=== PATIENT | female | born 1940 | race Caucasian/White ===

== ENCOUNTER → 2016-12-14 | Outpatient (CLI) | payer OTHER ==
--- NOTE | 2016-12-14 15:43 | MAMMOGRAPHY REPORT ---
BILATERAL DIGITAL SCREENING MAMMOGRAM WITH CAD: 12/14/2016 CLINICAL HISTORY: Routine screening. Patient has no complaints. TECHNIQUE: Bilateral CC and MLO views were obtained. Current study was also evaluated with a Comput er Aided Detection (CAD) system. COMPARISON: Comparison is made to exams dated: 12/09/2015 mammogram, 12/03/2014 mammogram, 03/09/2011 mammogram, 09/27/2013 mammogram, 11/24/2009 mammogram - [facility], and 11/11/2008. BREAST COMPOSITION: The tissue of both breasts is heterogeneously dense, which may obscure small ma sses. FINDINGS: The parenchymal pattern is unchanged. No developing mass, architectural distortion or clu ster of suspicious microcalcifications is seen in either breast. IMPRESSION: ACR BI-RADS CATEGORY 2: BENIGN There is no mammographic evidence of malignancy. A 1 year screening mammogram is recommended. The p atient will receive written notification of the results. Approximately 10% of breast cancers are not detected with mammography. A negative mammographic repor t should not delay biopsy if a clinically suggestive mass is present. Kriss Khanna M.D. ay/:12/14/2016 15:31:02 Director Video: Lexis LENNON(Blake)(Cipriano), [facility] letter sent: Normal 1/2 BI-RADS Code: ACR BI-RADS Category 2: Benign
== END | disposition home or self-care (01) ==
LOC: C.MAMM 14:55
PROVIDERS: ATTEND Family Medicine
DX: Z12.31 Encounter for screening mammogram for malignant neoplasm of breast (principal)

== ENCOUNTER 2017-11-25 06:44 | Inpatient (IN) | payer OTHER ==
[2017-10-31 10:46] VITALS: BMI 27.0
--- NOTE | 2017-10-31 11:26 | PAT Medication Instructions ---
Service Date Oct 31, 2017. Current Home Medication List Acetaminophen/Diphenhydramine (Tylenol Pm), 1 TAB PO HS PRN for Sleep Aspirin (Aspirin Ec), 81 MG PO QDL Calcium Carbonate (Tums), 1 TAB PO QDL Cholecalciferol (Vitamin D3), Unknown Dose PO QAM Diazepam (Valium), 2 MG PO UD PRN for prn Folic Bomz-Volelqujxu-Koxixerw (Folbic), 1 TAB PO QDL Levothyroxine Sodium (Levothyroxine Sodium), 1 TAB PO QAM Multivitamin (Multivitamin), 1 TAB PO QDL Naproxen (Aleve), 220 MG PO UD PRN for prn Verapamil (Verelan Pm), 180 MG PO BID Medication Instructions For Your Scheduled Surgery -Contact your surgeon for instructions for: Naproxen (Aleve), 220 MG PO UD PRN for prn - Hold the following medications the morning of surgery: Cholecalciferol (Vitamin D3), Unknown Dose PO QAM - Take the following medications the morning of surgery with a sip of water: Diazepam (Valium), 2 MG PO UD PRN for prn (if needed) Levothyroxine Sodium (Levothyroxine Sodium), 1 TAB PO QAM Verapamil (Verelan Pm), 180 MG PO BID - Take the following medications as scheduled the afternoon/night before surgery : Acetaminophen/Diphenhydramine (Tylenol Pm), 1 TAB PO HS PRN for Sleep (if needed ) Aspirin (Aspirin Ec), 81 MG PO QDL Calcium Carbonate (Tums), 1 TAB PO QDL Diazepam (Valium), 2 MG PO UD PRN for prn (if needed) Folic Ioij-Xemgevjyyi-Idmnodns (Folbic), 1 TAB PO QDL Multivitamin (Multivitamin), 1 TAB PO QDL Verapamil (Verelan Pm), 180 MG PO BID If you have any questions please call us at [phone] or [phone] or [phone]
--- NOTE | 2017-10-31 12:13 | DIAGNOSTIC IMAGING REPORT ---
TWO VIEW CHEST CLINICAL HISTORY: Preoperative examination. FINDINGS: PA and lateral chest radiographs are compared to study dated 02/07/2014. The heart is top normal for projection and there is atherosclerotic calcification of the thoracic aorta. Chronic interstitial thickening is similar to previous. There is no airspace consolidation or pleural effusion. There is no pneumothorax. The skeletal structures are osteopenic. Arthritic change is seen in the shoulders. IMPRESSION: No active disease in the chest. Electronically signed by: Ari Jerez M.D. 10/31/2017 12:12 PM Dictated Date/Time: 10/31/2017 12:11 PM
[2017-10-31 12:14] LABS: BASO % 0.8 %; BASO ABS # 0.04 K/uL (0-0.2); EOS % 3.1 %; EOS ABS # 0.16 K/uL (0-0.5); HEMATOCRIT 39.5 % (37-47); HEMOGLOBIN 13.4 g/dL (12.0-16.0); IG# 0.01 K/uL (0.00-0.02); LYMPH % 29.5 %; LYMPH ABS # 1.53 K/uL (1.2-3.4); MEAN CELL VOLUME 90.6 fL (80-100); MEAN CORPUSCULAR HEMOGLOBIN 30.7 pg (25-34); MEAN CORPUSCULAR HGB CONC 33.9 g/dl (32-36); MONO % 11.8 %; MONO ABS # 0.61 K/uL (0.11-0.59); NEUT % 54.6 %; NEUT ABS # 2.83 K/uL (1.4-6.5); PLATELET COUNT 258 K/uL (130-400); RED CELL DISTRIBUTION WIDTH CV 13.9 % (11.5-14.5); RED CELL DISTRIBUTION WIDTH SD 46.1 fL (36.4-46.3); WHITE BLOOD COUNT 5.18 K/uL (4.8-10.8)
[2017-10-31 12:33] LABS: PTT PATIENT 29.2 SECONDS (21.0-31.0)
[2017-10-31 14:10] LABS: CALCIUM 9.8 mg/dl (8.5-10.1); CREATININE 0.73 mg/dl (0.60-1.20)
--- NOTE | 2017-11-18 17:58 | HISTORY & PHYSICAL EXAMINATION ---
DATE OF ADMISSION: 11/25/2017 CHIEF COMPLAINT: Left hip pain. HISTORY OF PRESENT ILLNESS: This is a 77-year-old female who presents for treatment of her left hip and leg pain. She has a several year history of gradually progressive increasing left hip pain and discomfort. She describes groin pain, thigh pain, buttock pain that radiates down to her knee. Denies any numbness. We put a shot in her hip area which helped for just a little bit. She become more debilitated by her pain. She limps more as the day goes on. She has a who is not real healthy and she is having more and more difficulty caring for him due to her limited walking ability and limping and pain. She would like to have her left hip fixed. PAST MEDICAL HISTORY: Significant for: 1. Hypertension. 2. Thyroid cancer status post resection. 3. Arthritis. 4. Low back pain/sciatica. PAST SURGICAL HISTORY: Include: 1. Thyroid removal, 2009. 2. Shoulder surgery, 2006. 3. Knee arthroscopy, 2002. 4. Cataract surgery x2. 5. Hysterectomy. ALLERGIES: SULFA AND SHRIMP. CURRENT MEDICINES: Include: 1. Levothyroxine. 2. Verapamil. 3. Folic acid. 4. Baby aspirin. 5. Calcium. 6. Daily vitamin. SOCIAL HISTORY: A 77-year-old female. She is . Her is in declining health. She does not smoke. No significant alcohol intake. FAMILY HISTORY: Negative for heart disease, diabetes, or blood clots. REVIEW OF SYSTEMS: Negative for diabetes, neurological problems, vascular problems, bleeding disorders. Denies any chest pain or shortness of breath. No history of DVT or PE. She does have a kind of chronic back pain. PHYSICAL EXAMINATION: GENERAL: Reveals a healthy, pleasant middle-aged female. She looks stronger than her stated age. HEENT: Benign. NECK: Supple. No lymphadenopathy. LUNGS: Clear to auscultation. HEART: Has a regular rate and rhythm. ABDOMEN: Soft, nontender, nondistended. EXTREMITIES: Grossly neurovascularly intact except as follows: Examination of left hip and leg reveals patient walks with a bit of a flexed hip posture. She limps on the left side. Leg lengths are clinically pretty equal. She has pain with any type of hip motion and pretty stiff hip. Internally rotates maybe to a neutral at best. External rotation at 20 degrees. She has pain with internal rotation. Negative straight leg raise. She has about a 20 degree flexion contracture of the hip. X-RAYS: X-rays of the hip reveal advanced left hip DJD. She has complete loss of superior joint space. She has subchondral sclerosis. She has diffuse osteopenia. She does have advanced lumbar spondylosis as well. ASSESSMENT: A 77-year-old female with left hip and leg pain consistent with advanced left hip arthritis. She also has pretty significant lumbar spondylosis and spinal stenosis. She would like to have her left hip replaced. PLAN: We talked about treatment options and will proceed with left hip replacement. The risk and benefits of left total hip replacement were explained to the patient include but not limited to DVT, PE, , infection, neurological injury, vascular injury, bleeding problem, pain, limited range of motion, stiffness, failure to relieve symptoms, incomplete relief of symptoms, need for further surgery in future, fracture, leg length inequality, nerve palsy, dislocation, need for blood transfusion, etc. The patient understands and desires to proceed. Informed consent was obtained. I did explain to her that this is not going to fix her back problem and she is fully aware of that. She is planning on going to a custodial facility or [facility] for a brief rehab stay. Her is not in a great medical health and she does not want to be a burden on him. We did talk about holding her verapamil the morning of surgery.
[2017-11-25] VITALS (25 sets, daily range): BP systolic 103–147; BP diastolic 54–79; PULSE 55–81; TEMP 33.7–36.6; O2SAT 94–99; Ht 162.6 cm; Wt 72.2 kg
[~2017-11-25] VITALS: Ht 162.6 cm; Wt 72.2 kg
[~2017-11-25 06:44] MED LIST: ACETAMINOPHEN 500 MG TAB PO SCH; ASPI81TA28 PO; BUPIVACAINE 0.5 % 5 MG/1 ML PF 10ML VIAL ONE; CALC500C3 PO; CEFAZOLIN 2000MG IV PUSH 15 ML IV SCH; CHOL1000 PO; DC INTRASPINAL MORPHINE SCH; DIAZ2TAB PO; DIPH-437 PO; FAMOTIDINE 20 MG TAB PO SCH; FOLITAB21 PO; GABAPENTIN 300 MG CAP PO SCH; LACTATED RINGER'S 1000ML 1,000 ML IV SCH; LACTATED RINGER'S 1000ML 500 ML IV SCH; LACTATED RINGER'S 1000ML IV SCH; LEVO112T4 PO; METOCLOPRAMIDE HCL 10 MG TAB PO SCH; MULT-506 PO; NAPR1TAB9 PO; SCOPOLAMINE 1.5 MG TDSY TD SCH; TRANEXAMIC ACID INJ 1,000 MG x 1 Bag Preop IV SCH; VERA1CAP5 PO
--- NOTE | 2017-11-25 06:54 | History & Physical Bridge Note ---
H&P Re-Evaluation Bridge Note: I have examined the patient, reviewed the History & Physical and in the interval since the performance of the History & Physical I have noted the following changes of clinical significance: No changes noted
[2017-11-25] MEDS ORDERED: ONDANSETRON INJ 2 MG/ML 2 ML VIAL IV PRN ×2 (07:45→10:45)
[2017-11-25] MEDS ORDERED: ATROPINE SULFATE 0.1 MG/ML 5ML SYR IV PRN (07:45)
[2017-11-25] MEDS ORDERED: FENTANYL CITRATE INJ 50 MCG/1 ML 2 ML VIAL IV PRN (07:45)
[2017-11-25] MEDS ORDERED: EpHEDrine SULFATE INJ 50 MG/ML AMP IV PRN ×2 (07:45→08:45)
[2017-11-25] MEDS ORDERED: ONDANSETRON INJ 2 MG/ML 2 ML VIAL ONE (08:07)
[2017-11-25] MEDS ORDERED: DEXAMETHASONE SOD INJ 4 MG/ML VIAL ONE (08:07)
[2017-11-25] MEDS ORDERED: LIDOCAINE HCL 2% 2 ML VIAL (20MG/ML) ONE (08:07)
[2017-11-25] MEDS ORDERED: PROPOFOL IV EMULSION 10 MG/ML 20 ML VIAL IV ONE (08:07)
[2017-11-25] MEDS ORDERED: FENTANYL CITRATE INJ 50 MCG/1 ML 2 ML VIAL ONE (08:08)
[2017-11-25] MEDS ORDERED: MIDAZOLAM HCL 1 MG/ML 2ML VIAL ONE (08:08)
[2017-11-25] MEDS ORDERED: MoRPHine SULFATE PF 1 MG/ML 10 ML AMP/VIAL ONE (08:10)
[2017-11-25] MEDS ORDERED: BACITRACIN 50000 UNIT VIAL ONE (08:31)
[2017-11-25] MEDS ORDERED: BUPIVACAINE/EPINEPHRINE 0.5% MPF 1:200,000 30 ML VIAL ONE (08:31)
[2017-11-25] MEDS ORDERED: LACTATED RINGER'S 1000ML 500 ML IV PRN (08:42)
[2017-11-25] MEDS ORDERED: SODIUM CHLORIDE 0.9% 1000ML 1,000 ML IV PRN (08:42)
[2017-11-25] MEDS ORDERED: NALOXONE HCL INJ 1 MG in SODIUM CHLORIDE 0.9% 1000ML 1,000 ML IV PRN (08:42)
[2017-11-25] MEDS ORDERED: NALOXONE HCL INJ 0.08 MG in SYRINGE 1.8 ML IV PRN (08:42)
[2017-11-25] MEDS ORDERED: MEPERIDINE HCL 25 MG/ML CARP IV PRN (08:45)
[2017-11-25] MEDS ORDERED: NALOXONE HCL 0.4 MG/1 ML VIAL/CARP IV PRN (08:45)
[2017-11-25] MEDS ORDERED: MoRPHine SULFATE 2 MG/ML CARP IV PRN (08:45)
[2017-11-25] MEDS ORDERED: MoRPHine SULFATE PF 1 MG/ML 10 ML AMP/VIAL EPI PRN (08:45)
[2017-11-25] MEDS ORDERED: DiphenhydrAMINE HCL 50 MG/ML VIAL IV PRN (08:45)
[2017-11-25] MEDS ORDERED: NALBUPHINE HCL INJ 10 MG/ML AMP IV PRN (08:45)
[2017-11-25] MEDS ORDERED: NO NARCOTICS OR SEDATIVES SCH (08:45)
[2017-11-25] MEDS ORDERED: PHENYLEPHRINE 100MCG/ML 5ML SYR ONE (09:15)
[2017-11-25] MEDS ORDERED: EpHEDrine SULFATE INJ 50 MG/ML AMP ONE (09:24)
--- NOTE | 2017-11-25 10:36 | [facility] Post Operative Brief Note ---
Immediate Operative Summary Operative Date Nov 25, 2017. Pre-Operative Diagnosis Advanced Arthritis Left Hip Post-Operative Diagnosis Left Hip Degenerative Joint Disease and Chronic Hip Abductor Avulsion Procedure(s) Performed Left Total Hip Arthroplasty, uncemented = Hip Abductor Repair Surgeon Dr Ward Gluing Pressman Surgeon(s) Shine Schuler PA-C Estimated Blood Loss 300cc Findings Consistent with Post-Op Diagnosis Specimens As Per Surgeon A. Femoral Head, Left Drains None Anesthesia Type Spinal MAC Complication(s) none Disposition Accompanied Pt To Recover: yes Disposition: Recovery Room / PACU
[2017-11-25] MEDS ORDERED: METOCLOPRAMIDE HCL INJ 5 MG/ML 2 ML VIAL IV PRN (10:45)
[2017-11-25] MEDS ORDERED: ACETAMINOPHEN 500 MG TAB PO SCH (10:45)
[2017-11-25] MEDS ORDERED: TRAMADOL HCL 50 MG TAB PO PRN (10:45)
[2017-11-25] MEDS ORDERED: ALUMINUM/MAGNESIUM/SIMETH (MAALOX MAX) 30 ML UDC PO PRN (10:45)
[2017-11-25] MEDS ORDERED: MAGNESIUM HYDROXIDE SUSP 30 ML UDC PO PRN (10:45)
[2017-11-25] MEDS ORDERED: BISACODYL 10 MG SUPP PR PRN (10:45)
[2017-11-25] MEDS ORDERED: HYDROmorphone INJ 0.5 MG/0.5 ML SYR IV PRN (10:45)
[2017-11-25] MEDS ORDERED: CEFAZOLIN IV 1,000 MG in DEXTROSE 5% 50ML 50 ML IV SCH (10:45)
--- NOTE | 2017-11-25 11:13 | DIAGNOSTIC IMAGING REPORT ---
SINGLE VIEW PELVIS; SINGLE VIEW LEFT HIP CLINICAL HISTORY: Postoperative examination. FINDINGS: An AP portable view of the hips and pelvis with a crosstable lateral portable view of the left hip are obtained. A bipolar left hip arthroplasty is in near-anatomic alignment. A single cortical lag screw transfixes the acetabular cup. No acute fracture is identified. There are expected postoperative changes overlying the left hip including skin clips, subcutaneous gas, and soft tissue swelling. Moderate arthritic changes noted in the right hip. IMPRESSION: Expected postoperative findings status post left hip arthroplasty. No acute fracture is seen. Electronically signed by: Ari Jerez M.D. 11/25/2017 11:12 AM Dictated Date/Time: 11/25/2017 11:11 AM
--- NOTE | 2017-11-25 11:41 | Anesthesiology Progress Note ---
Anesthesia Post Op Note Date & Time Nov 25, 2017 at 11:41 Vital Signs Pain Intensity: 0 Vital Signs Past 12 Hours Date Time Temp Pulse Resp B/P (MAP) Pulse Ox O2 Delivery O2 Flow Rate FiO2 11/25/17 11:32 36.2 64 12 105/59 (74) 94 Nasal Cannula 2.0 11/25/17 11:15 36.3 63 14 99/44 94 Nasal Cannula 2 11/25/17 11:05 61 14 98/49 96 Nasal Cannula 2 11/25/17 10:55 61 14 91/46 (61) 95 Nasal Cannula 2 11/25/17 10:45 78 14 99/49 97 Nasal Cannula 2 11/25/17 10:37 36.1 65 16 101/50 95 Nasal Cannula 2 11/25/17 07:25 36.6 81 18 147/79 94 Room Air Notes Mental Status: alert / awake / arousable, participated in evaluation Pt Amnestic to Procedure: Yes Nausea / Vomiting: adequately controlled Pain: adequately controlled Airway Patency, RR, SpO2: stable & adequate BP & HR: stable & adequate Hydration State: stable & adequate Neuraxial Anesthesia: was administered, sensory block is resolving Anesthetic Complications: no major complications apparent
[2017-11-25] MEDS: ONDANSETRON INJ 2 MG/ML 2 ML VIAL IV PRN ×2 (12:29→21:50)
[2017-11-25] MEDS: CALCIUM CARBONATE 500 MG CHEWABLE PO SCH ×2 (12:30→13:02)
[2017-11-25] MEDS: D5W AND 1/2NSS + 20MEQ KCL 1,000 ML IV SCH ×2 (12:51→21:52)
[2017-11-25] MEDS: FERROUS GLUCONATE 324 MG TAB PO SCH ×2 (13:02→17:45)
[2017-11-25] MEDS: MULTIVITAMIN TAB PO SCH ×2 (13:02→13:03)
[2017-11-25] MEDS ORDERED: TRANEXAMIC ACID INJ 1,000 MG in SODIUM CHLORIDE 0.9% 100ML 100 ML IV ONE (14:00)
[2017-11-25] MEDS: KETOROLAC TROMETHAMINE 15 MG/ML VIAL IV. SCH ×2 (14:20→20:22)
--- NOTE | 2017-11-25 15:11 | PROGRESS NOTE ---
DATE: 11/25/2017 SUBJECTIVE: This is a 77-year-old white female postop from a left total hip replacement. She is doing well. Not having any pain yet. Just feels tired and sleepy. No chest pain or shortness of breath. Not feeling dizzy or lightheaded. OBJECTIVE: VITAL SIGNS: Temperature is 35.5. Vital signs stable. PHYSICAL EXAMINATION: GENERAL: Reveals a pleasant, elderly female. She is lying in bed and looks really pretty tired. I had to wake her and she tends to kind of fall back asleep in between questions. LUNGS: Clear to auscultation. HEART: Regular rate and rhythm. ABDOMEN: Soft, nontender, nondistended. EXTREMITIES: Grossly neurovascularly intact except as follows. Examination of left hip and leg reveals leg lengths to be equal. Dressing is clean, dry and intact. She can dorsiflex and plantarflex her foot appropriately. She is neurologically intact. X-RAYS: X-rays of the left hip from recovery room reviewed. It Showed left uncemented total hip arthroplasty, but components looked to be in good position. No signs of problems. ASSESSMENT: A 77-year-old female postop from a left total hip replacement, doing well. Pain is controlled. Hip is located. She is neurologically intact. She is pretty tired but nothing unexpected. PLAN: 1. DVT prophylaxis including thigh-high TEDs, SCDs, and aspirin twice a day. 2. PT/OT. Weight bear as tolerated. Left total hip protocol. 3. Pain control, doing well with current pain regimen. We will try and limit narcotics to avoid confusion. 4. IV antibiotics x24 hours. 5. Disposition: Plan to discharge to home with some home health once adequately recovered. [facility]
[2017-11-25] MEDS: CEFAZOLIN IV 1,000 MG in SYRINGE 0 ML IV SCH (15:46)
[2017-11-25] MEDS: CHECK SCOPOLAMINE PATCH PLACEMENT SCH (15:48)
[2017-11-25] MEDS: [UNRECOGNIZED DRUG - REMARK] SCH (15:50)
[2017-11-25] MEDS: ACETAMINOPHEN 500 MG TAB PO SCH (15:50)
--- NOTE | 2017-11-25 17:19 | OPERATIVE REPORT ---
DATE OF OPERATION: 11/25/2017 SURGEON: Dr. George Ward. ELECTROMECHANICAL ASSEMBLER: SOLOMON Rene PREOPERATIVE DIAGNOSIS: Left hip degenerative joint disease. POSTOPERATIVE DIAGNOSES: 1. Left hip degenerative joint disease. 2. Left chronic hip abductor avulsion. PROCEDURES PERFORMED: 1. Left uncemented ceramic on highly cross-linked polyethylene total hip arthroplasty. 2. Left hip abductor repair. COMPLICATIONS: None. ESTIMATED BLOOD LOSS: 300 mL. FLUID REPLACEMENT: 1700 mL crystalloid fluid replacement. ANESTHESIA: Spinal. DRAINS: None. SPECIMENS: Left femoral head sent for pathology. OPERATIVE INDICATIONS: The patient is a 77-year-old female who has had a fairly long history of left hip pain and discomfort, which she describes as gotten worse. She had become more and more debilitated by her pain. She elected to proceed with total hip arthroplasty. OPERATIVE FINDINGS: Operative findings revealed advanced left hip DJD with extensive grade 4 changes of the femoral head and acetabulum. Some moderate hip osteophyte anteriorly to the acetabulum. She had a chronic hip abductor avulsion. OPERATIVE IMPLANTS: Operative implants consisted of: 1. Biomet G7 size 52-mm acetabular shell. 2. A 6.5 cancellous acetabular screws, one of 35 mm in length and one at 20 mm in length. 3. An apex hole eliminator. 4. A highly cross-linked polyethylene liner with a 52 mm outer diameter and 36 mm inner diameter. 5. A Corail size 12 standard femoral stem. 6. A +1.5/36 mm ceramic articular ball. 7. A 2.9-mm JuggerKnot anchors x2. OPERATIVE PROCEDURE: The patient was taken to the operating room, identified and placed on the operative table in the supine position. All contact areas were appropriately padded. IV antibiotics were provided by anesthesia team. A spinal anesthetic had been implemented in the holding area. Srinivasan catheter was placed in sterile fashion. The patient was placed in the right lateral decubitus position. An axillary roll was placed. Stulberg hip positioner was used for positioning. Left hip and leg were then prepped and draped in the usual sterile fashion. A posterolateral approach to the left hip was then performed through a curvilinear incision centered over the greater trochanter. Sharp dissection was carried through subcutaneous tissue down to the level of the IT band and gluteal fascia. The IT band and gluteal fascia were incised longitudinally in line with the skin incision. The underlying greater trochanteric bursa was excised. I then noticed obvious chronic hip abductor avulsion. The external rotators were then tagged and taken off the posterior aspect of the hip joint capsule, taking great care to protect the sciatic nerve at all times. Posterior capsulotomy was then performed and the hip was internally rotated. Femoral neck osteotomy cut was made with the final cut about 10 mm above the lesser trochanter. Femoral head was removed and sent for pathology. The femur was retracted anteriorly. Attention was then drawn to the acetabulum. The acetabular labrum was excised. The pulvinar fat was excised. Sequential reaming of the acetabulum was then performed beginning with a size 43 and progressing up to 51. A 52-mm Biomet G7 acetabular shell was then placed in about 40 degrees of lateral opening and 20 degrees of anteversion. It was fixed with two 6.5 cancellous acetabular screws. Some anterior osteophytes were removed. Trial liner was placed. Attention was then drawn to the femur. The proximal femur was entered with a cookie cutter. I then used a canal finder. I then broached beginning with a size 8 and progressing up to a size 12. We got excellent fit at 12. I used the calcar reamer to smoothen off the calcar. We then trialed the hip. The +5 was just a bit too tight, so we used the +1.5 articular ball. The hip was fully stable in full extension and external rotation, flexion to 90 degrees, and internal rotation to 60+ degrees. We elected to use these implants. All trial implants were removed. An apex hole eliminator was placed. A highly cross-linked polyethylene liner was placed. A size 12 standard Corail DePuy femoral stem was then placed. A +1.5/36 mm ceramic articular ball was placed. Hip was located and once again found to be stable. Attention was then drawn toward closing. The wound was irrigated with copious amounts of irrigation and pulsatile lavage. I did inject locally with 60 mL of 0.5% Marcaine with epinephrine. The posterior capsule and external rotators were then repaired through drill holes in the posterior trochanter. This was done with #2 Ti-Cron suture. I then used the cautery to abrade the greater trochanter. I then placed 2 Biomet JuggerKnot anchors in the trochanter. Each one had 2 sutures on and I fed these through the hip abductor muscle and tendon area. The tendons were then sewed down to the greater trochanter. I then used some #1 Vicryl sutures to repair some of the soft tissue to the vastus lateralis areas well. Once this was complete, I irrigated the wound again. The IT band and gluteal fascia were then closed with #1 PDS suture in a running fashion. The subcutaneous tissues were then closed with 2 layers with the deep layer #1 Vicryl suture and subcutaneous tissue with 2-0 Dexon suture in a buried interrupted fashion. Skin was closed with skin ann marie. Leg was then cleaned, dried and a sterile dressing of Xeroform, 4 x 4's, ABD pad and foam tape was applied. The patient then transferred to the recovery room in stable condition. The patient tolerated the procedure well with no complication. All needle and sponge counts were correct at the end of the operation. I attest to the content of the Intraoperative Record and any orders documented therein. Any exception s are noted below.
[2017-11-25] MEDS: DOCUSATE SODIUM 100 MG CAP PO SCH (21:53)
[2017-11-25] MEDS: VERAPAMIL HCL 180 MG TABCR PO SCH (21:53)
[2017-11-25] MEDS: ASPIRIN 81 MG ECTAB PO SCH (21:53)
[2017-11-25] MEDS: SENNA 8.6 MG TAB PO SCH (21:53)
[2017-11-26] VITALS (12 sets, daily range): BP systolic 100–128; BP diastolic 54–64; PULSE 62–80; TEMP 36.6–37; O2SAT 92–99
[2017-11-26] MEDS: ACETAMINOPHEN 500 MG TAB PO SCH ×4 (01:02→23:25)
[2017-11-26] MEDS: CEFAZOLIN IV 1,000 MG in SYRINGE 0 ML IV SCH (01:07)
[2017-11-26] MEDS: KETOROLAC TROMETHAMINE 15 MG/ML VIAL IV. SCH ×4 (02:14→20:48)
[2017-11-26] MEDS ORDERED: HYDROmorphone INJ 0.5 MG/0.5 ML SYR IV PRN (02:45)
[2017-11-26] MEDS ORDERED: DIAZEPAM 2MG TAB PO PRN (02:45)
[2017-11-26] MEDS ORDERED: ZOLPIDEM TARTRATE 5 MG TAB PO PRN (02:45)
[2017-11-26] MEDS: D5W AND 1/2NSS + 20MEQ KCL 1,000 ML IV SCH (06:18)
[2017-11-26] MEDS: LEVOTHYROXINE 112 MCG TAB PO SCH (06:18)
[2017-11-26 06:21] LABS: BASO % 0.1 %; BASO ABS # 0.01 K/uL (0-0.2); EOS % 0.6 %; EOS ABS # 0.05 K/uL (0-0.5); HEMATOCRIT 29.4 % (37-47); HEMOGLOBIN 9.8 g/dL (12.0-16.0); IG# 0.01 K/uL (0.00-0.02); LYMPH % 15.5 %; LYMPH ABS # 1.34 K/uL (1.2-3.4); MEAN CELL VOLUME 92.7 fL (80-100); MEAN CORPUSCULAR HEMOGLOBIN 30.9 pg (25-34); MEAN CORPUSCULAR HGB CONC 33.3 g/dl (32-36); MONO % 10.1 %; MONO ABS # 0.87 K/uL (0.11-0.59); NEUT % 73.6 %; NEUT ABS # 6.36 K/uL (1.4-6.5); PLATELET COUNT 192 K/uL (130-400); RED CELL DISTRIBUTION WIDTH CV 13.6 % (11.5-14.5); RED CELL DISTRIBUTION WIDTH SD 46.2 fL (36.4-46.3); WHITE BLOOD COUNT 8.64 K/uL (4.8-10.8)
[2017-11-26 06:43] LABS: CALCIUM 8.2 mg/dl (8.5-10.1); CREATININE 0.85 mg/dl (0.60-1.20)
--- NOTE | 2017-11-26 07:27 | PROGRESS NOTE ---
DATE: 11/26/2017 SUBJECTIVE: A 77-year-old female postop day 1 from a left hip replacement. She is doing well. Not having any pain this morning while just lying in bed. No chest pain or shortness of breath. Not feeling dizzy or lightheaded. OBJECTIVE: VITAL SIGNS: Temperature 36.9. Vital signs stable. GENERAL: Reveals a pleasant elderly female. She is lying in bed, looks pretty comfortable. EXTREMITIES: Examination of left hip reveals the leg to be well aligned. Dressing is clean, dry and intact. Hip is located. She is neurologically intact. LABORATORY DATA: Hemoglobin 9.8, hematocrit 29.4. Electrolytes are stable. ASSESSMENT: A 77-year-old white female postop day 1 from left total hip replacement, doing well. Pain is controlled. Hip is located. She is neurologically intact. She is anemic, but without symptoms. PLAN: 1. DVT prophylaxis including thigh-high TEDs, SCDs, and aspirin twice a day. 2. PT/OT. Weight bear as tolerated. Left total hip protocol. 3. Pain control, doing well with current pain regimen. 4. Anemia. Will continue iron supplementation. 5. Disposition: She is [facility] to [facility]hab stay once medically stable.
[2017-11-26] MEDS ORDERED: MULTIVITAMIN TAB PO SCH (09:00)
[2017-11-26] MEDS: [UNRECOGNIZED DRUG - REMARK] SCH ×4 (09:13→23:24)
[2017-11-26] MEDS: CHECK SCOPOLAMINE PATCH PLACEMENT SCH ×4 (09:14→23:23)
[2017-11-26] MEDS: FERROUS GLUCONATE 324 MG TAB PO SCH ×3 (09:49→17:41)
[2017-11-26] MEDS: PANTOprazole SOD 40 MG TAB PO SCH (09:49)
[2017-11-26] MEDS: DOCUSATE SODIUM 100 MG CAP PO SCH ×2 (09:50→20:48)
[2017-11-26] MEDS: ASPIRIN 81 MG ECTAB PO SCH ×2 (09:50→20:48)
[2017-11-26] MEDS: VERAPAMIL HCL 180 MG TABCR PO SCH ×2 (09:50→20:48)
[2017-11-26] MEDS: CALCIUM CARBONATE 500 MG CHEWABLE PO SCH (12:45)
[2017-11-26] MEDS: MULTIVITAMIN TAB PO SCH (12:45)
[2017-11-26] MEDS ORDERED: ASPEC81 PO (20:00)
[2017-11-26] MEDS ORDERED: ACET-24 PO (20:00)
[2017-11-26] MEDS ORDERED: ULT50X PO (20:00)
--- NOTE | 2017-11-26 20:04 | Discharge Instructions ---
Discharge Instructions Date of Service Nov 26, 2017. Admission Reason for Admission: Left Hip Degenerative Joint Disease Discharge Discharge Diagnosis / Problem: Left Hip Replacement Discharge Goals Goal(s): Decrease discomfort, Improve function, Increase independence, Improve disease control, Therapeutic intervention Activity Recommendations Activity Level: Assistance Required (Total Hip Precautions) Therapies: Physical Therapy, Occupational Therapy Weightbearing Status: Left weightbearing . Additional Information Patient informed of condition: Yes Advance Directives: No DNR: No Level of Care: Acute Rehab Communicable Disease: No Prognosis: Improving Srinivasan Catheter: No Instructions / Follow-Up Instructions / Follow-Up ACTIVITY RECOMMENDATIONS: Physical Therapy: * Aggressive physical therapy is not usually needed. You will learn to take care of yourself safely and walk. * Follow the "Hip Precautions Instructions." * In some cases, the social media project manager at the hospital will arrange to have a therapist come to your house for the first couple of weeks to help you learn these skills. * You need to practice on your own or with the help of a family member as needed. * When you learn these skills, most of the therapy can be done on your own. Home Exercise: * You were shown a series of exercises in the hospital. Do these exercises three to four times each day including the exercises you were shown in physical therapy. Walking: * Get up and walk several times each day. For the first four weeks, try not to stand or walk for more than one hour at a time. If you do stand or walk for more than one hour, you will not hurt anything, but your leg will likely swell. * As you feel comfortable, you may change from the walker or crutches to a cane and then to independent walking. MEDICATIONS: New Medicine: * You will likely be taking one or more of these medicines: 1. Tramadol - Take, as directed, when you need it, every four to six hours to control your pain. 2. Iron Sulfate - Take two times each day for the month after surgery to help you replace the blood lost during surgery. 3. Aspirin - Thins your blood to lessen the chance of forming a blood clot. * The most common side effects of pain medicine and iron are nausea and constipation. If nausea or constipation is too much of a problem or if you have any questions about your new medicines or doses, call [facility] at [phone]. We will try to help you manage these issues. VERY IMPORTANT TO READ AND REVIEW" Pain: * The immediate post-operative period after hip replacement surgery is often quite painful. * You are given a prescription for pain medicine. You should take it, as directed, when you need it, especially before physical therapy and before going to bed. Pain that interferes with sleep is very common and can last several months. * You will likely need pain medicine for the first two to four weeks. It will not stop all of the pain. The pain will lessen and as you feel better, you may change to milder pain medicine such as Tylenol. * The most common side effects of pain medicine are nausea and constipation, so don't take more than you need. SPECIAL CARE INSTRUCTIONS: TEDs/Elastic Stockings: * The white elastic stockings help limit swelling and prevent blood clots from forming in your legs. The more you wear them, the more they work. * Wear them for six weeks. Prevention of Infection: * Take antibiotics one hour before any dental cleaning, dental work, urological procedure, gastrointestinal procedure or any invasive surgery in order to prevent your new joint from getting infected. * You may get the antibiotics from the doctor performing the procedure or you may call our office at before and we will call in a prescription to the pharmacy of your choice. Things to Watch For: * Drainage from the incision site that occurs more than one week after your surgery. * Severely increased leg pain or swelling. * Increased redness at the incision site. * Fever above 102 degrees Fahrenheit. * Unusual chest pain or shortness of breath. * Unusual pain or burning with urination. Call [facility] at with any of the above problems or if you have any questions about your medicines or recovery. FOLLOW UP VISIT: Make an appointment to see your doctor for approximately two weeks after surgery for a progress check and staple removal by calling the office at . Current Hospital Diet Patient's current hospital diet: Regular Diet Discharge Diet Recommended Diet: Regular Diet Procedures Procedures Performed: Left Total Hip Arthroplasty, uncemented = Hip Abductor Repair Pending Studies Studies pending at discharge: no Medical Emergencies . Who to Call and When: Medical Emergencies: If at any time you feel your situation is an emergency, please call 911 immediately. . Non-Emergent Contact Non-Emergency issues call your: Surgeon . . "Provider Documentation" section prepared by George Ward. . Core Measure Problem Core Measures: None
[2017-11-26] MEDS ORDERED: FRRG PO (20:05)
[2017-11-26] MEDS: SENNA 8.6 MG TAB PO SCH (20:48)
[2017-11-27] MEDS: KETOROLAC TROMETHAMINE 15 MG/ML VIAL IV. SCH ×2 (01:41→08:00)
[2017-11-27] MEDS: LEVOTHYROXINE 112 MCG TAB PO SCH (06:05)
--- NOTE | 2017-11-27 06:19 | PROGRESS NOTE ---
DATE: 11/27/2017 SUBJECTIVE: A 77-year-old white female postop day 2 from a left hip replacement. She is doing pretty well. She did not sleep well last night. Pain is reasonably well controlled. No chest pain or shortness of breath. Not feeling dizzy or lightheaded. OBJECTIVE: VITAL SIGNS: Temperature 36.8. Vital signs stable. GENERAL: Reveals a pleasant elderly female. She is sitting up in her bedside chair and looks comfortable. EXTREMITIES: Examination of left hip reveals the dressing to be clean, dry and intact. Thigh is soft and supple. Hip is located. She is neurologically intact. ASSESSMENT: A 77-year-old white female postop day 2 from a left hip replacement, doing pretty well. Pain is controlled. PLAN: 1. DVT prophylaxis including thigh-high TEDs, SCDs, and aspirin twice a day. 2. PT/OT. Weightbear as tolerated. Left total hip protocol. 3. Pain control, doing pretty well with current pain regimen. 4. Disposition: She is planning to be discharged to [facility] for a brief rehab stay.
[2017-11-27 07:30] VITALS: BP 116/57; PULSE 69; TEMP 36.7; O2SAT 91
[2017-11-27] MEDS: CHECK SCOPOLAMINE PATCH PLACEMENT SCH (08:00)
[2017-11-27] MEDS: [UNRECOGNIZED DRUG - REMARK] SCH (08:00)
[2017-11-27] MEDS: FERROUS GLUCONATE 324 MG TAB PO SCH (08:30)
[2017-11-27] MEDS: ASPIRIN 81 MG ECTAB PO SCH (09:05)
[2017-11-27] MEDS: PANTOprazole SOD 40 MG TAB PO SCH (09:05)
[2017-11-27] MEDS: VERAPAMIL HCL 180 MG TABCR PO SCH (09:06)
[2017-11-27] MEDS: DOCUSATE SODIUM 100 MG CAP PO SCH (09:06)
[2017-11-27] MEDS: ACETAMINOPHEN 500 MG TAB PO SCH (09:06)
[2017-11-27 11:01] VITALS: BP 116/57; PULSE 69; TEMP 36.7; O2SAT 91
[2017-11-27] MEDS: CALCIUM CARBONATE 500 MG CHEWABLE PO SCH (12:25)
== END 2017-11-27 12:49 | DRG 470 ==
LOC: C.ACU 06:44 → C.3E 10:42 → ENRESERV 11:03
PROVIDERS: ADMIT Orthopaedic Surgery Sports Medicine; ATTEND Orthopaedic Surgery Sports Medicine
PROC: 0SRB04A Replacement of Left Hip Joint with Ceramic on Polyethylene Synthetic Substitute, Uncemented, Open Approach (ICD-10-PCS; principal; 2017-11-25 09:00)
PROC: 0KQP0ZZ Repair Left Hip Muscle, Open Approach (ICD-10-PCS; principal; 2017-11-25 09:00)
DX: M16.12 Unilateral primary osteoarthritis, left hip (principal); S76.012A Strain of muscle, fascia and tendon of left hip, initial encounter; I10 Essential (primary) hypertension; Z79.82 Long term (current) use of aspirin; Z79.899 Other long term (current) drug therapy; Z88.2 Allergy status to sulfonamides; Z91.013 Allergy to seafood; X58.XXXA Exposure to other specified factors, initial encounter

== ENCOUNTER → 2018-02-01 | Outpatient (CLI) | payer OTHER ==
[~2018-02-01] MED LIST changes: +ACET-24 PO; -ACETAMINOPHEN 500 MG TAB PO SCH; +ASPI-320 PO; -ASPI81TA28 PO; -BUPIVACAINE 0.5 % 5 MG/1 ML PF 10ML VIAL ONE; -CEFAZOLIN 2000MG IV PUSH 15 ML IV SCH; -DC INTRASPINAL MORPHINE SCH; -FAMOTIDINE 20 MG TAB PO SCH; +FRRG PO; -GABAPENTIN 300 MG CAP PO SCH; -LACTATED RINGER'S 1000ML 1,000 ML IV SCH; -LACTATED RINGER'S 1000ML 500 ML IV SCH; -LACTATED RINGER'S 1000ML IV SCH; -METOCLOPRAMIDE HCL 10 MG TAB PO SCH; -SCOPOLAMINE 1.5 MG TDSY TD SCH; -TRANEXAMIC ACID INJ 1,000 MG x 1 Bag Preop IV SCH; +ULT50X PO
--- NOTE | 2018-02-01 14:23 | MAMMOGRAPHY REPORT ---
BILATERAL DIGITAL SCREENING MAMMOGRAM TOMOSYNTHESIS WITH CAD: 02/01/2018 CLINICAL HISTORY: Routine screening. Patient has no complaints. TECHNIQUE: Breast tomosynthesis in addition to standard 2D mammography was performed. Current study was also evaluated with a Computer Aided Detection (CAD) system. COMPARISON: Comparison is made to exams dated: 12/14/2016 mammogram, 12/09/2015 mammogram, 12/03/2014 ma mmogram, 09/27/2013 mammogram, 03/09/2011 mammogram, and 11/24/2009 mammogram - [facility] nter. BREAST COMPOSITION: The tissue of both breasts is heterogeneously dense, which may obscure small mas ses. FINDINGS: The parenchymal pattern is similar to prior mammograms. There is stable asymmetry in the slightly medial and posterior left breast. No developing mass, architectural distortion or cluster o f suspicious microcalcifications is seen in either breast. IMPRESSION: ACR BI-RADS CATEGORY 2: BENIGN There is no mammographic evidence of malignancy. A 1 year screening mammogram is recommended. The pa tient will receive written notification of the results. Approximately 10% of breast cancers are not detected with mammography. A negative mammographic report should not delay biopsy if a clinically suggestive mass is present. Kriss Khanna M.D. ay/:02/01/2018 13:24:31 Facilities Maintenance Manager: Lexis PEOPLES)([place]), [facility] letter sent: Normal 1/2 BI-RADS Code: ACR BI-RADS Category 2: Benign
== END | disposition home or self-care (01) ==
LOC: C.MAMM 10:57
PROVIDERS: ATTEND Family Medicine
DX: Z12.31 Encounter for screening mammogram for malignant neoplasm of breast (principal)